=== PATIENT | male | born 1930 | race Caucasian/White ===

== ENCOUNTER 2016-05-13 09:01 | Emergency (ER) | payer MEDICARE, BC ==
[~2016-05-13] VITALS: Ht 177.8 cm; Wt 98.2 kg
[~2016-05-13 09:01] MED LIST: ACET-2930 PO; ACET-62 PO; ASPI-558 PO; CEPH500C2 PO; DUTA0.5C2 PO; INSU100I21 SQ; LISI-126 PO; OMEP20CA10 PO; PIOG30TA PO; PRAV40TA3 PO; PYRI60TA2 PO; [UNRECOGNIZED DRUG - CODE] PO
--- OUTSIDE RECORDS SUMMARY | 2016-05-13 09:05 | XMS REPORT | Continuity of Care Document ---
Author Author [facility] Organization [facility] Address Unknown Phone Unavailable Support Name Relationship Address Phone ORACIO JAUREGUI APRN Caregiver [address] [place] [address] Unavailable DAVID MONSON DO Caregiver [address] [place] [address] Unavailable ZANDER GRAY Next Of Kin [address] [place] [address] [id number] Insurance Providers Guarantor Karen Gray Address [address] [place] [phone] Email DENIED 16 [facility] Policy Number [id number] Subscriber's Name Karen Gray Relationship 18 Self Group Number [id number] Payer Medicare Policy Number [id number] Subscriber's Name Karen Gray Relationship 18 Self Chief Complaint and Reason for Visit Chief Complaint Skin Rash/Abscess/Injury Reason for Visit [id number] Ingrown fingernail Problems Active Problems Medical Problem Onset Date Status Acute urinary retention Unknown Resolved BPH (benign prostatic hypertrophy) with urinary obstruction Unknown Chronic Diabetes mellitus type 2 in obese Unknown Chronic Gastroesophageal reflux disease Unknown Chronic Hydroureter, left Unknown Acute Hypertension Unknown Chronic Neutrophilic leukocytosis Unknown Resolved Sepsis due to urinary tract infection Unknown Resolved Ureteral calculus, left Unknown Acute Urethral stricture Unknown Acute Urinary retention Unknown Acute Past Problems Medical Problem Onset Date Ingrown fingernail Unknown SIRS (systemic inflammatory response syndrome) Unknown Skin infection, bacterial Unknown UTI (urinary tract infection) Unknown Urethral calculus Unknown Medications Current Home Medications Medication Dose Units Route Directions Days Qty Instructions Start Date Acetaminophen 500 Mg Tablet 500-1000 Mg Oral Twice A Day as needed for Pain 04/30/15 Acetaminophen/Diphenhydramine (Tylenol Pm Ex-Strength Caplet) 1 Each Tablet 1 Tab Oral Bedtime as needed for Pain 02/29/16 Aspirin (Aspir 81) 81 Mg Tablet. 81 Mg Oral Daily 02/11/11 Cephalexin 500 Mg Capsule 500 Mg Oral Twice A Day 10 Days [address] Ryland Brito Pipe [employer]anks Cut [employer] Saw [employer] [facility] [address] [facility] [phone] 05/10/16 Dutasteride (Avodart) 0.5 Mg Capsule 1 Cap Oral Daily 02/29/16 Insulin Detemir (Levemir Flextouch) 100 Unit/1 Ml Insuln.pen 50 Unit Sub-Q Bedtime 02/29/16 Lisinopril 20 Mg Tablet 20 Mg Oral Daily 02/11/11 Metformin Hcl (Metformin Hcl Er) 750 Mg Tab.sr.24h 750 Mg Oral Twice A Day DR STOPPED UNTIL 01/30/16 02/11/11 Omeprazole 20 Mg Capsule.dr 20 Mg Oral Before Breakfast 02/29/16 Pioglitazone Hcl (Actos) 30 Mg Tablet 30 Mg Oral Daily 02/11/11 Pravastatin Sodium 40 Mg Tablet 40 Mg Oral Bedtime 04/30/15 Pyridostigmine [place] (Mestinon) 60 Mg Tablet 60 Mg Oral Daily 02/29/16 Past Home Medications Medication Directions Ordered Status Hydrochlorothiazide 25 Mg Tablet, 25 Mg Oral Daily 02/11/11 Discontinued Terbinafine Hcl (Lamisil) 250 Mg Tablet, 250 Mg Oral Daily 02/11/11 Discontinued Social History Social History Problem Response Recorded Date/Time Onset Date Status Chewing Tobacco Status No 04/14/2012 11:12am Not Applicable Not Applicable Hx Substance Use No 02/29/2016 1:37pm Not Applicable Not Applicable Hx Alcohol Use No 02/29/2016 1:37pm Not Applicable Not Applicable Has the pt used tobacco in the last 12 months No 02/29/2016 5:53pm Not Applicable Not Applicable Hospital Discharge Instructions No hospital discharge instructions. Plan of Care Discharge Date 05/10/16 11:50am Disposition 01 DISCHARGED HOME, SELF-CARE Condition at Discharge Stable Instructions/Education Provided Acute Wound Care (GEN) Prescriptions See Medication Section Referrals DAVID MONSON DO Address: [address] [place] [phone] Functional Status No functional status results. Allergies, Adverse Reactions, Alerts Allergen Type Severity Reaction Status Last Updated Penicillin Allergy Unknown Active 05/10/16 Immunizations Query Response on File Recorded Date/Time Hx Influenza Vaccination Y 12/0902/29/16 5:53pm Hx Pneumococcal Vaccination Y 12/09 PNEU 23 01/05/17 5:53pm Hx Influenza Vaccination Y 12/0902/29/16 5:53pm Hx Tetanus Diptheria UNKNOWN 05/31/11 2:36pm Influenza Vaccine Hx NOV 2015 05/10/16 11:26am Vital Signs Acute Vital Signs Vital Response Date/Time Temperature (Fahrenheit) 97.6 deg F (96.8 - 99.1) 05/10/2016 11:20am Temperature (Calculated Celsius) 36.09248 degrees C (36.0 - 37.3) 05/10/2016 11:20am Temperature Source Oral 03/01/2016 6:51pm Pulse Rate (adult) 110 bpm (60 - 100) 05/10/2016 11:20am Respiratory Rate 24 breaths/min (10 - 20) 05/10/2016 11:20am O2 Sat by Pulse Oximetry 94 % (90 - 100) 05/10/2016 11:20am Oxygen Delivery Method Room Air 03/03/2016 4:15am Oxygen Delivery Method Room Air 03/05/2016 4:22pm Oxygen Flow Rate 1.00 L/min 03/01/2016 10:00pm Blood Pressure 136/88 mm Hg 05/10/2016 11:20am Blood Pressure Source Automatic Cuff 03/05/2016 4:22pm Height (Feet) 5 feet 03/04/2016 7:02pm Height (Inches) 67.50 inches 05/10/2016 11:20am Weight (Kilograms) 101.600 kg 05/10/2016 11:20am Body Mass Index (BMI) 34.0 05/10/2016 11:20am Results Laboratory Results Test Name Result Units Flags Reference Collection Date/Time Result Date/ Time Comments White Blood Count 6.1 T/MM3 4.5-11.0 03/04/2016 3:51am 03/04/2016 5: 36am Red Blood Count 3.58 M/MM3 L 4.50-5.90 03/04/2016 3:51am 03/04/2016 5: 36am Hemoglobin 10.7 GM/DL L 13.5-17.5 03/04/2016 3:51am 03/04/2016 5:36am Hematocrit 33.2 % L 41-53 03/04/2016 3:51am 03/04/2016 5:36am Mean Corpuscular Volume 92.7 UM3 80-100 03/04/2016 3:03/04/2016 5: 36am Mean Corpuscular Hemoglobin 29.9 UUG 26-34 03/04/2016 3:2016 5:36am Mean Corpuscular Hemoglobin Concent 32.2 GM/DL 31-37 03/04/2016 3:03/04/2016 5:36am RDW Standard Deviation 41.2 FL 36.9-50.2 03/04/2016 3:03/04/2016 5 :36am Platelet Count 205 T/MM3 130-400 03/04/2016 3:03/04/2016 5:36am Mean Platelet Volume 12.0 UM3 9.4-12.4 03/04/2016 3:03/04/2016 5: 36am Neutrophils (%) (Auto) 48.3 % 33-66 03/04/2016 3:03/04/2016 5: 36am Lymphocytes (%) (Auto) 40.5 % 23-45 03/04/2016 3:03/04/2016 5: 36am Monocytes (%) (Auto) 9.6 % H 0-9.0 03/04/2016 3:03/04/2016 5:36am Eosinophils (%) (Auto) 1.1 % 0-4 03/04/2016 3:03/04/2016 5:36am Basophils (%) (Auto) 0.2 % 0-2 03/04/2016 3:03/04/2016 5:36am Immature Granulocyte % (Auto) 0.3 % 0.0-0.5 03/04/2016 3:2016 5:36am Absolute Neutrophils (auto) 3.0 T/MM3 1.8-7.7 03/04/2016 3:2016 5:36am Absolute Lymphocytes (auto) 2.5 T/MM3 1-4.8 03/04/2016 3:2016 5:36am Absolute Monocytes (auto) 0.6 T/MM3 0-0.8 03/04/2016 3:03/04/2016 5:36am Absolute Eosinophils (auto) 0.1 T/MM3 0-0.5 03/04/2016 3:51am 2016 5:36am Absolute Basophils (auto) 0.0 T/MM3 0-0.2 03/04/2016 3:51am 03/04/2016 5:36am Absolute Immature Granulocyte (auto 0.02 T/MM3 0.00-0.03 03/04/2016 3: 51am 03/04/2016 5:36am Prothromb Time International Ratio 1.29 H 0.76-1.04 03/01/2016 3:54am 03/01/2016 4:56am THERAPUTIC RANGE=2.00-3.00 FOR ANTI-THROMBOSIS THERAPUTIC RANGE=2.50-3.50 FOR IMPLANTED VALVE Activated Partial Thromboplast Time 29.3 SEC 24-36 03/01/2016 3:54am 4:56am Icterus Index < 2 0-7 03/04/2016 3:51am 03/04/2016 5:37am Chemistry Specimen Hemolysis 21 0-25 03/04/2016 3:51am 03/04/2016 5: 37am 0-25: Specimen Exhibited No Hemolysis. Turbidity < 20 0-20 03/04/2016 3:51am 03/04/2016 5:37am Sodium Level 143 MEQ/L 134-144 03/04/2016 3:51am 03/04/2016 5:37am Potassium Level 3.2 MEQ/L L 3.6-5 03/04/2016 3:51am 03/04/2016 5:37am Chloride Level 107 MEQ/L 98-107 03/04/2016 3:51am 03/04/2016 5:37am Carbon Dioxide Level 27 MEQ/L 22-30 03/04/2016 3:51am 03/04/2016 5: 37am Anion Gap 9 MEQ/L 5-15 03/04/2016 3:51am 03/04/2016 5:37am Blood Urea Nitrogen 11.0 MG/DL 9-20 03/04/2016 3:51am 03/04/2016 5: 37am Creatinine 0.8 MG/DL 0.8-1.5 03/04/2016 3:51am 03/04/2016 5:37am BUN/Creatinine Ratio 14 RATIO 6-26 03/04/2016 3:51am 03/04/2016 5:37am Glomerular Filtration Rate Calc 92 03/04/2016 3:51am 03/04/2016 5: 37am Glucose Level 65 MG/DL L 75-110 03/04/2016 3:51am 03/04/2016 5:37am Calculated Osmolality 272 MOSM/KG 261-280 03/04/2016 3:51am 03/04/2016 5:37am Calcium Level 8.0 MG/DL L 8.4-10.2 03/04/2016 3:51am 03/04/2016 5:37am Total Bilirubin 0.60 MG/DL 0.20-1.30 03/01/2016 3:54am 03/01/2016 5: 05am Alkaline Phosphatase 54 U/L 38-126 03/01/2016 3:54am 03/01/2016 5:05am Total Protein 6.0 G/DL L 6.3-8.2 03/01/2016 3:54am 03/01/2016 5:05am Albumin 3.0 G/DL L 3.5-5.0 03/01/2016 3:54am 03/01/2016 5:05am Globulin 3.0 G/DL 2.4-3.6 03/01/2016 3:54am 03/01/2016 5:05am Albumin/Globulin Ratio 1.0 RATIO L 1.1-2.2 03/01/2016 3:54am 03/01/2016 5:05am Aspartate Amino Transf (AST/SGOT) 33 U/L 17-59 03/01/2016 3:54am 2016 5:05am Alanine Aminotransferase (ALT/SGPT) 46 U/L 21-72 03/01/2016 3:54am 07/2016 5:05am Magnesium Level 1.6 MG/DL 1.6-2.3 03/04/2016 3:51am 03/04/2016 5:37am Plasma Lactate 1.7 MMOL/L 0.6-2.2 02/29/2016 2:00pm 02/29/2016 2:21pm Procalcitonin 0.47 NG/ML 02/29/2016 2:00pm 02/29/2016 2:37pm PCT </= 0.5 ng/mL - sepsis not likely; PCT >0.5 and </=2 ng/mL - sepsis possible; PCT >2 ng/mL - sepsis likely; PCT >/=10 ng/mL - systemic inflammatory response - sepsis or septic shock highly indicated. Stool C. difficile Toxin B Gene PCR NEGATIVE NEGATIVE 03/03/2016 12: 50pm 03/03/2016 2:20pm If Toxin A is clinically indicated, treat accordingly. Urine Color YELLOW YELLOW 02/29/2016 1:44pm 02/29/2016 2:08pm Urine Turbidity SL CLOUDY CLEAR 02/29/2016 1:44pm 02/29/2016 2:08pm Urine Specific [place] 1.025 1.015-1.025 02/29/2016 1:44pm 2016 2:08pm Urine pH 6.5 5.0-8.0 02/29/2016 1:44pm 02/29/2016 2:08pm Urine Leukocyte Esterase 2+ A NEGATIVE 02/29/2016 1:44pm 02/29/2016 2: 08pm Urine Nitrite POSITIVE A NEGATIVE 02/29/2016 1:44pm 02/29/2016 2:08pm Urine Protein 3+ A NEGATIVE 02/29/2016 1:44pm 02/29/2016 2:08pm Urine Glucose (UA) 2+ A NEGATIVE 02/29/2016 1:44pm 02/29/2016 2:08pm Urine Ketones NEGATIVE NEGATIVE 02/29/2016 1:44pm 02/29/2016 2:08pm Urine Urobilinogen 1.0 EU/DL NORMAL 02/29/2016 1:44pm 02/29/2016 2: 08pm Urine Bilirubin 1+ A NEGATIVE 02/29/2016 1:44pm 02/29/2016 2:08pm Urine Blood 3+ A NEGATIVE 02/29/2016 1:44pm 02/29/2016 2:08pm Urine WBC TNTC /HPF H 0-5 02/29/2016 1:44pm 02/29/2016 2:17pm Urine RBC 10-20 /HPF H 0-3 02/29/2016 1:44pm 02/29/2016 2:17pm Urine Bacteria 2+ H NEGATIVE 02/29/2016 1:44pm 02/29/2016 2:17pm Urine Culture Indicated CULT REFLEXED &SETUP 02/29/2016 1:44pm 06/2016 2:17pm Stone Source Kidney 03/01/2016 8:15am 03/04/2016 9:27am Stone Constituent 1 SEE BELOW 03/01/2016 8:15am 03/04/2016 9:27am 100% Calcium oxalate monohydrate ADDITIONAL INFORMATION This test was developed and its performance characteristics determined by [facility] in a manner consistent with CLIA requirements. This test has not been cleared or approved by the U.S. Food and Drug Administration. Test Performed by: [facility] [place] [address] Press Technician: Blake Barbour II, M.D., Ph.D. Stone Analysis performed at [facility], [address] [place] [address] Pipe Blanks Cut Off Saw Operator Angle Palomares MD Glucometer 164 mg/dL H 75-110 03/05/2016 11:35am 03/05/2016 11:39am Microbiology Results Procedure Source Organism/Result Collection Date/Time Result Date/Time Result Status Blood Culture Peripheral/Iv Start NO GROWTH AFTER 5 DAYS 02/29/2016 2:04pm 03/05/2016 2:06pm Final Urine Culture Urine, Voided-Not Cc-Midstream PROTEUS MIRABILIS 02/29/2016 2 :17pm 03/02/2016 8:32am Final Procedures Procedure Status Date Provider(s) Routine venipuncture Completed 02/28/16 Ct abd & pelv 1/> regns Completed 02/28/16 Assay of creatinine Completed 02/28/16 Assay of urea nitrogen Completed 02/28/16 [id number]"INFUSION, NORMAL SALINE SOLUTION , 250 CC" Completed 02/28/16 [id number]"LOW OSMOLAR CONTRAST MATERIAL, 300-399 MG/ML IODINE C Completed Cysto/uretero w/lithotripsy Completed 03/01/16 OLVIN HANNON Cystoscopy & revise urethra Completed 03/01/16 OLVIN HANNON EXTIRPATION OF MATTER FROM LEFT URETER, ENDO Completed 03/01/16 OLVIN HANNON RELEASE URETHRA, ENDO Completed 03/01/16 OLVIN HANNON DILATION OF LEFT URETER WITH INTRALUMINAL DEVICE, ENDO Completed 03/01/16 OLVIN HANNON Encounters Encounter Location Arrival/Admit Date Discharge/Depart Date Attending Provider Departed Emergency Room [facility] 05/10/16 10:57am 05/10/16 11: 50am ORACIO JAUREGUI APRN Registered Clinic [facility] 05/06/16 7:42am JOSE RAFAEL CHACKO MD Registered [facility] 03/05/16 3:56pm DAVID MONSON DO Discharged Inpatient [facility] 03/01/16 2:17pm 03/05/16 4:55pm DAVID MONSON DO Registered Clinic [facility] 02/28/16 1:45pm OLVIN HANNON MD Recent Diagnosis
--- OUTSIDE RECORDS SUMMARY | 2016-05-13 09:05 | XMS REPORT | Continuity of Care Document ---
Author Author [facility] Organization [facility] Address Unknown Phone Unavailable Allergies Active Description Code Type Severity Reaction Onset Reported/Identified Relationship to Patient Clinical Status Yes penicillin NKMA N/A UNKNOWN 06/22/2013 Medications Problems Procedures Results Encounters ACCT No. Visit Date/Time Discharge Status Pt. Type Provider Facility Loc./Unit Complaint [id number] 07/10/2015 14:21:00 2015 23:59:00 DIS Outpatient Mike Elliott [facility] [place] 6 week recheck [id number] 12/06/2014 10:20:00 2014 23:59:00 DIS Outpatient Mike Elliott [facility] 6 month rachel [id number] 05/26/2015 15:27:00 ACT Outpatient Mike Elliott [facility] ER followup from 05/14
[2016-05-13 09:15] VITALS: Ht 177.8 cm; Wt 98.2 kg
--- NOTE | 2016-05-13 09:20 | NUR ---
PROVIDER DR. CLEARY IN ROOM
--- OUTSIDE RECORDS SUMMARY | 2016-05-13 09:25 | XMS REPORT | Continuity of Care Document ---
Author Author [facility] Organization [facility] Address Unknown Phone Unavailable Allergies Active Description Code Type Severity Reaction Onset Reported/Identified Relationship to Patient Clinical Status Yes penicillin NKMA N/A UNKNOWN 06/22/2013 Medications Problems Procedures Results Encounters ACCT No. Visit Date/Time Discharge Status Pt. Type Provider Facility Loc./Unit Complaint [id number] 07/10/2015 14:21:00 2015 23:59:00 DIS Outpatient Mike Elliott [facility] [place] 6 week recheck [id number] 12/06/2014 10:20:00 2014 23:59:00 DIS Outpatient Mike Elliott [facility] [place] 6 month rachel [id number] 05/26/2015 15:27:00 ACT Outpatient Mike Elliott [facility] [place] ER followup from 05/14
[2016-05-13] MEDS ORDERED: LIDOCAINE 1% (10mg/ml) 30ml SDV INFIL ONE (09:30)
--- NOTE | 2016-05-13 09:55 | ERPDOC ---
Departure Disposition Decision Date: May 13, 2016 Disposition Decision Time: 09:51 Disposition: 01 DISCHARGED HOME, SELF-CARE Impression Impression Impression: Primary Impression: Abscess of left thigh Severity: Mild Condition: Improved Seen By: Physician only Referrals: DAVID MONSON DO (Family) 2 Days 2pm 05/15/2016 Patient Instructions: Abscess (ED) Problems/Meds/Labs Reviewed?: Yes Medications reviewed and manag: Yes Additional Instructions: 1. Keep wound clean and dry 2. Follow with Dr. Monson 3. Return to the ER as needed Follow up care ordered?: Yes Mental Status: Alert, Oriented Scripts Bacitracin (Bacitracin) 28.4 Gm Oint...g. 1 APPLIC TOP BID for absces for 10 Days, #30 GM 0 Refills Prov: DIMA CLEARY DO 05/13/16 Clindamycin HCl (Clindamycin HCl) 300 Mg Capsule 1 CAP PO QID for abscess for 10 Days, #40 CAP 0 Refills TAKE WITH A FULL GLASS OF WATER TO AVOID ESOPHAGEAL IRRITATION. Prov: DIMA CLEARY DO 05/13/16 HPI - Skin General General Chief Complaint: Skin Rash/Abscess Stated Complaint: LUMP L LEG Time Seen by Provider: 09:18 Source: patient (Patient presents to the ER with Abscess to left thigh. Area is undurated, fluctuant with surrounding erythema. Patient was seen at the [facility] on 05/10 2016 for abscess right upper arm and Paronychia, and started on Keflex) Exam Limitations: no limitations HPI - Skin General Occurred At: home Onset: Changing over time Duration: 1 week Pain Scale: Now & Worst: Unable to Rate Severity: mild Location: extremities (left thigh) Possible Cause: no cause identified Modifying Factors: IMPROVES WITH: other Associated Symptoms: DENIES: blisters, change in skin texture, edema, fever, flushing, headache, hives, jaundice, malaise, nasal congestion, numbness, pallor , paresthesia, petechiae, rash, sore throat, swelling/mass/lumps, tingling Hx of Similar Symptoms: Yes Allergies: Coded Allergies: Penicillins (Verified Allergy, Unknown, 05/10/16) Past History Past Medical History Metabolic: cancer, diabetes, hypercholesterolemia, hypertension GI: GERD Male: BPH, kidney stones Musculoskeletal: back pain Surgical History General: EGD, appendix, colonoscopy, gallbladder Reproductive/: other Family History Family PMH: FOUND: cancer Vaccines Hx Influenza Vaccination: Yes (12/09) Hx Pneumococcal Vaccination: Yes (12/09 PNEU 23) Social History Smoking Status: Current every day smoker Does patient use chewing tobac: No # of Packs/Tins per Day: 0.5 # of Years: 30 Second Hand Exposure: No Quit Date: Feb 24, 1979 Substance Use Type: does not use Alcohol Intake: none Marital Status: Sexuality: female partner Housing: house Household Members: spouse Service: No Current Occupational Status: retired Occupational Hazard: No Advance Directives: Yes Full Code Record Review Pertinent history updated: Yes Review of Systems Constitutional Constitutional: DENIES: chills, fever Eyes Lids/Accessories: DENIES: erythema, swelling ENMT Ears: DENIES: erythema, pain Balance: DENIES: ataxia, vertigo Sinuses: DENIES: congestion, rhinorrhea Mouth/Throat: DENIES: sore throat Cardiovascular Cardiac: DENIES: chest pain, dyspnea on exertion, orthopnea Rhythm/Rate: DENIES: tachycardia Pulmonary Respiratory: DENIES: cough, dyspnea, sputum GI Upper Abdomen: DENIES: nausea, pain, vomiting Lower Abdomen: DENIES: constipation, diarrhea, pain General: DENIES: dysuria Musculoskeletal General: DENIES: cramps, pain, weakness Integumentary Skin: color change, see HPI, DENIES: itching, rash Neurological General: DENIES: ataxia, change in strength, headache, numbness, poor coordination, seizures, syncope, vertigo, weakness Psychiatric Psychiatric: DENIES: anxiety, depression, nervousness Hematologic/Lymphatic Hematologic/Lymphatic: DENIES: anemia Allergic/Immunological Allergic/Immunoligical: DENIES: sneezing All other Systems All Other Systems: Reviewed and Negative Physical Exam General General Nourishment: well nourished, well developed, appears stated age, adult , obese General Body Habitus: well groomed Vitals and Pain First Documented Vital Signs Date Time Temp Pulse Resp B/P Pulse Ox O2 Delivery O2 Flow Rate FiO2 05/13/16 09:15 97.9 109 18 144/89 92 Room Air Weight: Kilograms: 98.200 Height (feet): 5 Height (inches): 10.00 Triage Pain Scale: RN VS reviewed by Provider: Yes Eyes (brief) Eyes Brief: found: EOMI, PERRL ENMT (brief) ENMT Brief: FOUND: TM clear, TM good light reflex, mucosa moist, NOT FOUND: pharnyx erythema Neck (brief) Neck: FOUND: trachea midline, NOT FOUND: adenopathy, tenderness, tracheal deviation Respiratory (brief) Respiratory: FOUND: clear all pinedo, equal bilaterally Cardiovascular (brief) Cardiac: FOUND: regular rate, regular rhythm Capillary Refill: <2 sec Pulses: all distal extremities, equal, strong Abdomen (brief) Abdominal Brief: FOUND: bowel normo active x4, soft, NOT FOUND: distended, tender Lymphatic (brief) Lymphatic Brief: NOT FOUND: adenopathy Musculoskeletal (brief) Musculoskeletal Brief: NOT FOUND: deformity, loss of motion, spasm, tenderness Integumentary (brief) Integumentary Brief: FOUND: other (refer to HPI), pink, warm Neurologic (brief) Neurological Brief: FOUND: CN w/o gross def to obs, gait w/o gross def to obs, motor-no gross deficits, sensory-no gross deficits, NOT FOUND: ataxia Psychiatric (brief) Psychiatric Brief: FOUND: alert, attentive, normal affect, oriented Differential Diagnoses Considering: Abscess, Other Procedures Procedures Performed Procedures Performed: Incision & Drainage Incision and Drainage Procedure I&D : Site: Left Thigh Prep: chlorasept Anesthetic: 1% Lidocaine Volume of Anesthetic (cc's): 2 Blade Size: #11 Drainage: 5ml Culture Obtained?: Yes Dressing: Yes Packing: none Progress Results/Orders Orders Procedure Category Date Status Time Lidocaine 1% PHA 05/13/16 Complete (Xylocaine 1%) 09:30 Wound Culture PATRICIA 05/13/16 In Process Deepw/Gs-Aer/Angie 09:47 Dressing (Ed) EDM 05/13/16 Transmitted 10:06 Neomycin/Polymyxin/Bacitracin PHA 05/13/16 In Process (Neosporin 10:15 Medications Current ED Medications Lidocaine HCl (Xylocaine 1%) 100 mg O ONCE INFIL ; Start 05/13/16 at 09:30; Stop 05/13/16 at 09:31; Status DC Neomycin/ Polymyxin/ Bacitracin (Neosporin) 1 applic O ONCE TOP ; Start at 10:15; Stop 05/13/16 at 10:16 DIMA CLEARY DO May 13, 2016 09:55
[2016-05-13] MEDS ORDERED: CLIN300C86 PO (10:01)
[2016-05-13] MEDS ORDERED: BACI30OI6 TOP (10:02)
[2016-05-13] MEDS ORDERED: NEOMYCIN/POLYM/BACITR OINT PACKET TOP ONE (10:15)
[2016-05-13 10:18] VITALS: BP 124/75; PULSE 92; RESP 18; TEMP 97.9; O2SAT 91
--- NOTE | 2016-05-15 13:19 | NUR ---
MICROBIOLOGY REPORT WOUND CULTURE REPORT REVIEWED. POSITIVE FOR S. AUREUS, METH-RESISTANT. PATIENT HAS ALLERGY TO PENICILLINS. PREVIOUSLY PRESCRIBED CEPHALEXIN 500 MG PO, BID X10 DAYS, AND PRESCRIBED CLINDAMYCIN 300 MG PO, 4 TIMES PER DAY X10 DAYS. DR. CLEARY REVIEWED SENSITIVITIES. SUSCEPTIBLE TO CLINDAMYCIN. NO FURTHER ORDERS NEEDED PER DR. CLEARY.
== END 2016-05-13 10:18 | disposition home or self-care (01) ==
LOC: ED 09:01
DX: L02.416 Cutaneous abscess of left lower limb (principal)
CPT/HCPCS: 10060; 87070; 87075; 87147; 87186; 87205; 99283; A9270